=== PATIENT | male | born 2005 | race Two or more races ===

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

== ENCOUNTER 2025-01-22 09:19 | Emergency (ER) | payer BC ==
[~2025-01-22] VITALS: Ht 177.8 cm; Wt 80.5 kg
[2025-01-22 10:03] VITALS: BP 135/98; PULSE 82; RESP 18; TEMP 97; O2SAT 96
[2025-01-22] MEDS ORDERED: METH-1181 PO (11:19)
[2025-01-22] MEDS ORDERED: NAPR-746 PO (11:19)
--- NOTE | 2025-01-22 11:19 | ED.PDOC ---
Back pain HPI HPI Comments 19-year-old male with no pertinent MHx presents with a chief complaint of atraumatic right lower back pain that radiates down the posterior extremity. Symptoms started one month ago. No trauma no injury no red flags no saddle anesthesia Chief Complaint: Back Pain Time Seen by MD: 09:45 Primary Care Provider: UNKNOWN Allergies: Coded Allergies: NO KNOWN ALLERGIES (Unverified , 10/07/22) Home Meds Active Scripts Methocarbamol (Methocarbamol) 500 Mg Tab, 500 MG PO Q8HP PRN for 10 Days, #30 TAB 0 Refills Prov:NATALY BURKS [employer] 01/22/25 Naproxen (Naproxen) 500 Mg Tab, 500 MG PO BIDPC for 10 Days, #20 TAB 0 Refills Prov:NATALY BURKS [employer] WORKER 01/22/25 Ciprofloxacin Hcl (Ophth) (Cipro Opthalmic Soln) [address], 2 DROP LEFTEYE QID, #5 ML Prov:CHELO DEL VALLE 10/07/22 Mode of Arrival: Ambulatory Family History Family History: Reviewed,noncontributory to illness Social History Smoker: Non-Smoker Alcohol: Denies ETOH Use Drugs: Denies Drug Use Lives In: Home All Other Systems: Reviewed and Negative (Per HPI) Physical Exam General Appearance: No Apparent Distress, Normal HEENT: Normal ENT Inspection, Pharynx Normal, TMs Normal Neck: Full Range of Motion, Non-Tender, Normal, Normal Inspection Respiratory: Chest Non-Tender, Lungs Clear, No Accessory Muscle Use, No Respiratory Distress, Normal Breath Sounds Cardiovascular: No Edema, No JVD, No Murmur, No Gallop, Normal Peripheral P ulses, Regular Rate/Rhythm Breast Exam: Deferred Gastrointestinal: No Organomegaly, Non Tender, No Pulsatile Mass, Normal Bowel Sounds, Soft Genitalia: Deferred Pelvic: Deferred Rectal: Deferred Extremities: No calf tenderness, Normal capillary refill, Normal inspection, Normal range of motion, Non-tender, No pedal edema Musculoskeletal : Extremity Location: Back (Right straight leg raise test positive) Apperance: Normal Neurologic: Alert, activities specialist II-XII nml as Tested, No Motor Deficits, Normal Affect, Normal Mood, No Sensory Deficits Cerebellar Function: Normal Reflexes: Normal Skin: Dry, Normal Color, Warm Lymphatic: No Adenopathy Was a procedure done? Was a procedure done?: No Back Pain Differential Dx Differential Diagnosis: Musculoskeletal Pain X-Ray, Labs, Meds, VS Vital Signs Date Time Temp Pulse Resp B/P (MAP) Pulse Ox O2 Delivery O2 Flow Rate FiO2 01/22/25 10:03 82 18 96 Room Air 01/22/25 10:03 97.0 82 18 135/98 (110) 96 97.0 01/22/25 09:23 97.0 82 18 135/98 (110) 96 X-Ray, Labs, Meds, VS Comment Signs and symptoms suggest mechanical back pain. The episode appears to be exacerbated by movements. The patient's motor strength and DTR's are currently intact. There are no signs or symptoms of cauda equina or cord compression at this time. No evidence of fracture on Xray. Differential diagnoses include muscle strain versus arthralgia versus radicular/disk disease. The differential for an acute vascular, neurologic, malignant, or infectious etiologies is much less likely given presentation. Patient able to ambulate. The patient was counseled in regards to the diagnosis and management of their condition and verbalized understanding of this. The patient understands to go to the ED or seek immediate medical attention if the symptoms worsen or return. Time of 1ST Reevaluation: 11:00 Reevaluation 1ST: Improved Patient Education/Counseling: Diagnosis, Treatment Family Education/Counseling: Diagnosis, Treatment Departure 1 Departure Time of Disposition: 11:18 Impression: Primary Impression: Lumbar radiculopathy Disposition: HOME / SELF CARE / HOMELESS Condition: Stable e-Prescriptions Methocarbamol (Methocarbamol) 500 Mg Tab 500 MG PO Q8HP PRN for 10 Days, #30 TAB 0 Refills Prov: NATALY BURKS NP 01/22/25 Naproxen (Naproxen) 500 Mg Tab 500 MG PO BIDPC for 10 Days, #20 TAB 0 Refills Prov: NATALY BURKS NP 01/22/25 Critical Care Note Critical Care Time?: No Stability Stability form required: No Heart Score Heart Score: Heart Score Response (Comments) Value History N/A 0 EKG N/A 0 Age N/A 0 Risk Factors N/A 0 Troponin N/A 0 Total 0 NATALY BURKS NP Jan 22, 2025 11:19
[2025-01-22] MEDS ORDERED: methylPREDNISolone SOD SUCC 125 MG/2 ML VL IM ONE (11:30)
[2025-01-22] MEDS ORDERED: KETOROLAC TROMETH 30 MG/ML 1ML VIAL IM ONE (11:30)
== END 2025-01-22 11:27 | disposition home or self-care (01) ==
LOC: ER 09:19
DX: M54.16 Radiculopathy, lumbar region (principal)